=== PATIENT | female | born 1985 | race African-American/Black ===

== ENCOUNTER 2017-02-14 10:32 | Emergency (ER) | payer SELFPAY ==
[~2017-02-14] VITALS: Ht 167.6 cm; Wt 63.5 kg
[~2017-02-14 10:32] MED LIST: FERR-7 PO; PREN-96 PO
[2017-02-14 10:49] VITALS: BP 116/80
[2017-02-14] MEDS ORDERED: cefTRIAXone SOD 1,000 MG VL IM ONE (11:00)
== END 2017-02-14 11:13 | disposition home or self-care (01) ==
LOC: ER 10:32
DX: J03.90 Acute tonsillitis, unspecified (principal); Z88.8 Allergy status to other drugs, medicaments and biological substances; Z79.899 Other long term (current) drug therapy
CPT/HCPCS: 96372; 99283; J0696

== ENCOUNTER 2017-03-10 17:12 | Emergency (ER) | payer SELFPAY ==
[~2017-03-10] VITALS: Ht 167.6 cm; Wt 63.5 kg
[2017-03-10 18:02] VITALS: BP 115/85
== END 2017-03-10 21:24 | disposition left against medical advice (07) ==
LOC: ER 17:24
DX: J02.9 Acute pharyngitis, unspecified (principal); H92.02 Otalgia, left ear; H57.11 Ocular pain, right eye; Z53.21 Procedure and treatment not carried out due to patient leaving prior to being seen by health care provider

== ENCOUNTER 2017-03-11 01:25 | Emergency (ER) | payer SELFPAY ==
[~2017-03-11] VITALS: Ht 167.6 cm; Wt 63.5 kg
[2017-03-11 02:00] VITALS: BP 112/72
[2017-03-11] MEDS ORDERED: traMADol HCL 50 MG TAB PO ONE (03:00)
[2017-03-11] MEDS ORDERED: cefTRIAXone SOD 1,000 MG VL IM ONE (03:00)
[2017-03-11] MEDS ORDERED: SULFACETAMIDE SOD 10% OPTH(EYE) SOL 15ML RIGHTEYE ONE (03:00)
[2017-03-11] MEDS ORDERED: LIDOCAINE 1% HCL (LOCAL ANESTH.) INJ 20ML MDV ONE (03:03)
== END 2017-03-11 02:58 | disposition home or self-care (01) ==
LOC: ER 01:28
DX: K04.7 Periapical abscess without sinus (principal); H10.9 Unspecified conjunctivitis; H61.22 Impacted cerumen, left ear; Z91.013 Allergy to seafood
CPT/HCPCS: 96372; 99283; J0696; J2001

== ENCOUNTER 2017-05-03 15:12 | Emergency (ER) | payer SELFPAY ==
[~2017-05-03] VITALS: Ht 167.6 cm; Wt 63.5 kg
[2017-05-03 16:55] LABS: Urine Bacteria FEW /hpf (None Seen); Urine Blood Negative /uL (Negative); Urine Mucus FEW (None Seen); Urine Specific Gravity 1.012 (1.001-1.035); Urine WBC 2 /hpf (0 - 5)
[2017-05-03 17:37] VITALS: BP 111/75
== END 2017-05-03 21:09 | disposition left against medical advice (07) ==
LOC: ER 15:12
DX: R10.30 Lower abdominal pain, unspecified (principal); R22.0 Localized swelling, mass and lump, head; Z53.21 Procedure and treatment not carried out due to patient leaving prior to being seen by health care provider
CPT/HCPCS: 81001; 81025

== ENCOUNTER 2017-05-04 16:50 | Emergency (ER) | payer SELFPAY ==
[~2017-05-04] VITALS: Ht 167.6 cm; Wt 63.5 kg
[2017-05-04 19:24] VITALS: BP 144/78
[2017-05-04] MEDS ORDERED: cefTRIAXone SOD 1,000 MG VL IM ONE (19:45)
== END 2017-05-04 21:15 | disposition home or self-care (01) ==
LOC: ER 16:53
DX: J32.9 Chronic sinusitis, unspecified (principal); Z91.013 Allergy to seafood
CPT/HCPCS: 81025; 96372; 99283; J0696

== ENCOUNTER 2017-05-22 16:11 | Emergency (ER) | payer SELFPAY ==
[~2017-05-22] VITALS: Ht 167.6 cm; Wt 63.5 kg
[2017-05-22 19:51] LABS: Basophils # (auto) 0 uL; Basophils % (auto) 0.6 % (0.0-2.0); Eosinophils # (auto) 0.1 uL; Eosinophils % (auto) 2.3 % (0.0-7.0); Hematocrit 36.7 % (36.0-46.0); Hemoglobin 12.7 g/dL (12.2-16.2); Lymphocytes % (auto) 44.6 % (10.0-50.0); Mean Corpuscular Hemoglobin 33.2 pg (28.0-32.0); Mean Corpuscular Hgb Conc. 34.6 g/dL (32.0-36.0); Monocytes # (auto) 0.3 uL; Monocytes % (auto) 6.1 % (0.0-12.0); Neutrophils # (auto) 2.1 uL; Neutrophils % (auto) 46.4 % (37.0-80.0); Nucleated Red Blood Cells % 0.1 %; Platelet Count (auto) 343 10^3/uL (140-450); Red Blood Cells 3.82 10^6/uL (4.0-5.20); White Blood Cell 4.5 10^3/uL (4.4-10.8)
[2017-05-22 19:58] LABS: Urine Bacteria FEW /hpf (None Seen); Urine Blood Negative /uL (Negative); Urine Mucus FEW (None Seen); Urine Specific Gravity 1.007 (1.001-1.035); Urine WBC 73 /hpf (0 - 5)
[2017-05-22 20:11] LABS: Albumin 3.6 g/dL (3.4-5.0); BUN/Creatinine Ratio 15.1; Calcium 9.3 mg/dL (8.5-10.1); Potassium 3.8 mmol/L (3.5-5.1)
[2017-05-22 20:14] LABS: Bilirubin, Total 0.2 mg/dL (0.2-1.0); Total Protein 7.6 g/dL (6.4-8.2)
[2017-05-22] MEDS ORDERED: CEPHALEXIN 250 MG CAP PO ONE (21:00)
[2017-05-22 21:25] VITALS: BP 114/64
== END 2017-05-22 21:26 | disposition home or self-care (01) ==
LOC: ER 16:13
DX: O23.40 Unspecified infection of urinary tract in pregnancy, unspecified trimester (principal); Z91.013 Allergy to seafood; Z79.899 Other long term (current) drug therapy; Z3A.00 Weeks of gestation of pregnancy not specified
CPT/HCPCS: 36415; 80053; 81001; 81025; 82150; 83690; 84702; 85025

== ENCOUNTER 2018-05-01 21:26 | Emergency (ER) | payer SELFPAY | END 2018-05-01 21:45 | disposition left against medical advice (07) | LOC: ER 21:26 ==

== ENCOUNTER 2018-07-14 10:34 | Emergency (ER) | payer SELFPAY ==
[~2018-07-14] VITALS: Ht 167.6 cm; Wt 63.5 kg
[2018-07-14 11:12] VITALS: BP 125/87
== END 2018-07-14 11:55 | disposition home or self-care (01) ==
LOC: ER 10:34
DX: H66.93 Otitis media, unspecified, bilateral (principal); Z91.013 Allergy to seafood

== ENCOUNTER 2018-07-26 17:36 | Emergency (ER) | payer MEDICAID ==
[~2018-07-26] VITALS: Ht 170.2 cm; Wt 74.8 kg
[2018-07-26 17:42] VITALS: BP 180/74
[2018-07-26] MEDS ORDERED: KETOROLAC TROMETH 60MG/2ML VIAL IM ONE (23:15)
== END 2018-07-27 00:42 | disposition home or self-care (01) ==
LOC: ER 17:38
DX: H61.22 Impacted cerumen, left ear (principal); Z79.899 Other long term (current) drug therapy
CPT/HCPCS: 69209; 96372; 99283; J1885

== ENCOUNTER 2022-08-04 16:02 | Emergency (ER) | payer MEDICAID, OTHER ==
[~2022-08-04] VITALS: Ht 170.2 cm; Wt 89.9 kg
[2022-08-04 16:30] VITALS: BP 132/83
[2022-08-04] MEDS ORDERED: CEPH-510 PO (17:23)
== END 2022-08-04 22:31 | disposition home or self-care (01) ==
LOC: ER 16:02
DX: N60.01 Solitary cyst of right breast (principal)